=== PATIENT | male | born 2000 | race Caucasian/White ===

== ENCOUNTER 2022-10-20 20:11 | Emergency (ER) | payer BC ==
[2022-10-20 20:49] VITALS: BP 142/97; PULSE 94; RESP 17; TEMP 99; BMI 23.1
[2022-10-20] MEDS ORDERED: IBUPROFEN 600 MG TABLET (FP) PO ONE ×2 (21:11→21:13)
== END 2022-10-20 21:26 | disposition home or self-care (01) ==
LOC: FER 20:11
DX: M25.512 Pain in left shoulder (principal)
CPT/HCPCS: 73030-TC-LT-FY; 99283-25

== ENCOUNTER 2022-12-29 20:04 | Emergency (ER) | payer OTHER, BC ==
[2022-12-29 20:09] VITALS: BP 115/53; PULSE 56; RESP 18; TEMP 98.2; BMI 22.8
== END 2022-12-29 22:52 | disposition home or self-care (01) ==
LOC: JERFT 20:04
DX: H93.8X2 Other specified disorders of left ear (principal); S00.412A Abrasion of left ear, initial encounter; V89.2XXA Person injured in unspecified motor-vehicle accident, traffic, initial encounter
CPT/HCPCS: 99282-25